=== PATIENT | male | born 1995 | race Caucasian/White ===

== ENCOUNTER 2018-02-19 10:37 | Emergency (ER) | payer OTHER ==
[~2018-02-19] VITALS: Ht 170.2 cm; Wt 72.7 kg
[2018-02-19 12:18] VITALS: BP 123/69
[2018-02-19] MEDS ORDERED: KETOROLAC TROMETHAMINE 60 MG/2 ML VIAL IM ONE (12:30)
[2018-02-19] MEDS ORDERED: CYCLOBENZAPRINE HCL 10 MG TABLET PO ONE (12:30)
== END 2018-02-19 12:45 | disposition home or self-care (01) ==
LOC: EMS 10:38
DX: M54.5 Low back pain (principal); G89.29 Other chronic pain; F12.90 Cannabis use, unspecified, uncomplicated
CPT/HCPCS: 96372; 99283; J1885

== ENCOUNTER 2018-08-05 08:24 | Emergency (ER) | payer OTHER ==
[~2018-08-05] VITALS: Ht 170.2 cm; Wt 75.0 kg
[2018-08-05] MEDS: KETOROLAC TROMETHAMINE 60 MG/2 ML VIAL IM ONE (10:47)
[2018-08-05] MEDS: METHOCARBAMOL 500 MG TABLET PO ONE (10:47)
[2018-08-05 11:26] VITALS: BP 134/76
== END 2018-08-05 11:27 | disposition home or self-care (01) ==
LOC: EMS 08:24
DX: R07.89 Other chest pain (principal); R03.0 Elevated blood-pressure reading, without diagnosis of hypertension; F12.90 Cannabis use, unspecified, uncomplicated
CPT/HCPCS: 71045; 93005; 96372; 99283; J1885